=== PATIENT | male | born 1950 | race American Indian/Alaskan Native ===

== ENCOUNTER 2020-02-25 02:22 | Emergency (ER) | payer MEDICARE ==
--- NOTE | 2020-02-25 04:27 | XRay Report ---
CHEST 2 VIEWS INDICATION / CLINICAL INFORMATION: MAIN: SOB Pt says he woke up feeling SOB. Pt says "It may be my anxiety, I suffer from PTSD". COMPARISON: None available. FINDINGS: SUPPORT DEVICES: None. HEART / MEDIASTINUM: No significant abnormality. LUNGS / PLEURA: Both lungs are mildly hyperinflated suggesting COPD. There is blunting of the right c ostophrenic angle. It is unclear if this is a small pleural effusion or chronic pleural thickening. I would favor chronic pleural thickening. The lungs are otherwise clear. No suggestion of pneumonia or pulmonary edema. No pneumothorax. ADDITIONAL FINDINGS: No significant additional findings. IMPRESSION: 1. Hyperinflation consistent with COPD. No evidence of pneumonia. 2. Blunting of the right costophrenic angle. I suspect this is due to chronic pleural thickening but without prior radiographs, this is unknown. A small right pleural effusion cannot be excluded. Signer Name: Marta Delaney MD Signed: 02/25/2020 4:23 AM Workstation Name: [id number]
[2020-02-25 04:44] LABS: Basophils % (Auto) 0.7 % (0.0-1.8); Eosinophils % (Auto) 0.6 % (0.0-4.3); Hemoglobin 19.1 gm/dl (11.8-15.2); Lymphocytes # (Auto) 1.4 K/mm3 (1.2-5.4); Lymphocytes % (Auto) 20.9 % (13.4-35.0); Monocytes # (Auto) 0.7 K/mm3 (0.0-0.8); Monocytes % (Auto) 10.8 % (0.0-7.3)
[2020-02-25 04:51] LABS: Hematocrit 56.5 % (35.5-45.6); Mean Corpuscular HGB Conc 34 % (32-34); Mean Corpuscular Volume 90 fl (84-94); Platelet Count 259 K/mm3 (140-440); Red Blood Count 6.25 M/mm3 (3.65-5.03)
[2020-02-25 05:11] LABS: Albumin 5.1 g/dL (3.9-5); Calcium 10.9 mg/dL (8.4-10.2)
--- NOTE | 2020-02-25 05:48 | Emergency Department Report ---
ED Shortness of Breath HPI - General Chief Complaint: Anxiety Stated Complaint: CHEST PAIN, SHORTNESS OF BREATH Time Seen by Provider: 02/25/20 03:43 Source: patient Mode of arrival: Ambulatory Limitations: No Limitations - History of Present Illness Initial Comments: Patient is a 69-year-old male presents emergency room with complaints of shortness of breath that began around 2 AM this morning. He states that it woke him out of his sleep. He states that it felt difficult to breathe. Patient states that he has a history of PTSD and believes that he may have been having a panic attack per the patient. He denies any chest pain, palpitations, cough, fever, leg swelling. He has a past medical history of HTN, "irregular heartbeat", PE in 2011, CKD stage 4 per pt. He denies any allergies to medications. He is a former smoker and occasional drinker. He denies any SI or HI. - Related Data Allergies Allergy/AdvReac Type Severity Reaction Status Date / Time No Known Allergies Allergy Unverified 02/25/20 02:33 ED Review of Systems ROS: Stated complaint: CHEST PAIN, SHORTNESS OF BREATH Other details as noted in HPI Comment: All other systems reviewed and negative ED Past Medical Hx - Past Medical History Hx Hypertension: Yes Hx Psychiatric Treatment: Yes (Anxiety, PTSD) - Surgical History Past Surgical History?: No - Social History Smoking Status: Never Smoker Substance Use Type: None ED Physical Exam - General Limitations: No Limitations General appearance: alert, in no apparent distress - Head Head exam: Present: atraumatic, normocephalic - Eye Eye exam: Present: normal appearance - ENT ENT exam: Present: mucous membranes moist - Respiratory Respiratory exam: Present: normal lung sounds bilaterally. Absent: respiratory distress, wheezes, rales, rhonchi, stridor, chest wall tenderness, accessory muscle use, decreased breath sounds, prolonged expiratory - Cardiovascular Cardiovascular Exam: Present: normal rhythm, tachycardia, normal heart sounds. Absent: systolic murmur, diastolic murmur, rubs, gallop - Neurological Exam Neurological exam: Present: alert, oriented X3 - Psychiatric Psychiatric exam: Present: normal affect, normal mood - Skin Skin exam: Present: warm, dry, intact ED Course Vital Signs 02/25/20 02/25/20 02:28 06:21 Temperature 98.2 F 98.0 F Pulse Rate 115 H 88 Respiratory 18 18 Rate Blood Pressure 131/92 Blood Pressure 174/102 [Left] O2 Sat by Pulse 98 98 Oximetry ED Medical Decision Making - Lab Data Result diagrams: 02/25/20 04:02 02/25/20 04:02 Lab Results 02/25/20 02/25/20 02/25/20 Range/Units 04:02 04:02 04:02 WBC 6.5 (4.5-11.0) K/mm3 RBC 6.25 H (3.65-5.03) M/mm3 Hgb 19.1 H (11.8-15.2) gm/dl Hct 56.5 H (35.5-45.6) % MCV 90 (84-94) fl MCH 31 (28-32) pg MCHC 34 (32-34) % RDW 17.0 H (13.2-15.2) % Plt Count 259 (140-440) K/mm3 Lymph % (Auto) 20.9 (13.4-35.0) % [place] % (Auto) 10.8 H (0.0-7.3) % Eos % (Auto) 0.6 (0.0-4.3) % Baso % (Auto) 0.7 (0.0-1.8) % Lymph # 1.4 (1.2-5.4) K/mm3 [place] # 0.7 (0.0-0.8) K/mm3 Eos # 0.0 (0.0-0.4) K/mm3 Baso # 0.0 (0.0-0.1) K/mm3 Seg Neutrophils % 67.0 (40.0-70.0) % Seg Neutrophils # 4.3 (1.8-7.7) K/mm3 D-Dimer 402.34 H (0-234) ng/mlDDU Sodium 138 (137-145) mmol/L Potassium 4.3 (3.6-5.0) mmol/L Chloride 98.7 (98-107) mmol/L Carbon Dioxide 20 L (22-30) mmol/L Anion Gap 24 mmol/L BUN 23 H (9-20) mg/dL Creatinine 2.9 H (0.8-1.5) mg/dL Estimated GFR 26 ml/min BUN/Creatinine Ratio 8 % Glucose 105 H (75-100) mg/dL Calcium 10.9 H (8.4-10.2) mg/dL Total Bilirubin 0.50 (0.1-1.2) mg/dL AST 22 (5-40) units/L ALT 19 (7-56) units/L Alkaline Phosphatase 137 H (35-129) units/L Troponin T 0.018 (0.00-0.029) ng/mL NT-Pro-B Natriuret Pep 75.70 (0-900) pg/mL Total Protein 9.1 H (6.3-8.2) g/dL Albumin 5.1 H (3.9-5) g/dL Albumin/Globulin Ratio 1.3 % Vital Signs 02/25/20 02/25/20 02:28 06:21 Temperature 98.2 F 98.0 F Pulse Rate 115 H 88 Respiratory 18 18 Rate Blood Pressure 131/92 Blood Pressure 174/102 [Left] O2 Sat by Pulse 98 98 Oximetry - EKG Data EKG shows normal: sinus rhythm, axis, intervals, QRS complexes Rate: normal - EKG Data 02/25/20 05:47 biatrial enlargement posterior infarct, old non specific T wave inversion in inferior leads no old EKG for comparison - Radiology Data Radiology results: report reviewed CHEST 2 VIEWS INDICATION / CLINICAL INFORMATION: MAIN: SOB Pt says he woke up feeling SOB. Pt says "It may be my anxiety, I suffer from PTSD". COMPARISON: None available. FINDINGS: SUPPORT DEVICES: None. HEART / MEDIASTINUM: No significant abnormality. LUNGS / PLEURA: Both lungs are mildly hyperinflated suggesting COPD. There is blunting of the right costophrenic angle. It is unclear if this is a small pleural effusion or chronic pleural thickening. I would favor chronic pleural thickening. The lungs are otherwise clear. No suggestion of pneumonia or pulmonary edema. No pneumothorax. ADDITIONAL FINDINGS: No significant additional findings. IMPRESSION: 1. Hyperinflation consistent with COPD. No evidence of pneumonia. 2. Blunting of the right costophrenic angle. I suspect this is due to chronic pleural thickening but without prior radiographs, this is unknown. A small right pleural effusion cannot be excluded. Signer Name: Marta Delaney MD Signed: 02/25/2020 4:23 AM Workstation Name: [id number] Transcribed By: Dictated By: Marta Delaney MD Electronically Authenticated By: Marta Delaney MD Signed Date/Time: 02/25/203 DD/ 042 TD/TT: CT chest wo con INDICATION / CLINICAL INFORMATION: S.O.B., possible pleural effusion on CXR. TECHNIQUE: Axial CT imaging of the chest was obtained without contrast. Coronal and sagittal reformatted imaging obtained and reviewed. All CT scans at this location are performed using CT dose reduction for ALARA by means of automated exposure control. COMPARISON: Recent chest radiograph from earlier today FINDINGS: Chest CT without contrast does not demonstrate any mediastinal or hilar adenopathy. Heart size is normal. There is coronary artery calcification. Thoracic aorta is of normal caliber. There is some scarring in the right lung base with some mild pleural thickening. No pleural effusion is identified. The remainder of the lungs are clear. No evidence of pneumonia. Images of the upper abdomen show IVC filter in position. No acute finding within the upper abdomen. Moderate spondylitic changes are noted in the thoracic spine. IMPRESSION: 1. No acute finding within the chest. 2. There is mild parenchymal scarring and pleural thickening in the right lung base, accounting for findings on recent chest radiograph. Signer Name: Marta Delaney MD Signed: 02/25/2020 6:03 AM Workstation Name: [id number] Transcribed By: JR Dictated By: Marta Delaney MD Electronically Authenticated By: Marta Delaney MD Signed Date/Time: 02/25/20 0603 DD/ 0558 TD/TT: Nuclear medicine ventilation/perfusion lung scan Indication: Shortness of breath, history of right lung pulmonary embolism in 2010 TECHNICAL DATA: Inhaled administration followed by immediate static images of chest in multiple projections coordinated with breathing instructions. Followed by immediate static images of chest in multiple projections post I.V. injection. 15.6 millicuries of 133 Xenon is administered by inhalation. Pulmonary wash-in, equilibrium, and washout phases are performed. 4.5 millicuries of 99m Tc MAA is administered intravenously. FINDINGS: The ventilation scan is normal without evidence of delayed washout. The perfusion scan demonstrates homogeneous uptake without evidence of segmental or subsegmental defects. IMPRESSION: Normal lung scan. Signer Name: Marta Delaney MD Signed: 02/25/2020 6:55 AM Workstation Name: [id number] Transcribed By: Dictated By: Marta Delaney MD Electronically Authenticated By: Marta Delaney MD Signed Date/Time: 02/25/20654 DD/ 3 TD/TT: - Medical Decision Making Patient is a 69-year-old male presents emergency room with complaints of harvey rtness of breath that began around 2 AM this morning. He states that it woke him out of his sleep. He states that it felt difficult to breathe. Patient states that he has a history of PTSD and believes that he may have been having a panic attack per the patient. He denies any chest pain, palpitations, cough, fever, leg swelling. He has a past medical history of HTN, "irregular heartbeat", PE in 2010, CKD stage 4 per pt. He denies any allergies to medications. He is a former smoker and occasional drinker. He denies any SI or HI. Initial vitals with tachycardia which improved upon repeat. breath sounds are clear bilaterally to auscultation. EKG with biatrial enlargement, posterior infarct, old, non specific T wave inversion in inferior leads, no old EKG for comparison. Labs with elevated d-dimer, stable CKD, negative troponin. CXR: 1. Hyperinflation consistent with COPD. No evidence of pneumonia. 2. Blunting of the right costophrenic angle. I suspect this is due to chronic pleural thickening but without prior radiographs, this is unknown. A small right pleural effusion cannot be excluded. CT chest without contrast ordered to characterize XR findings due to no prior visits which shows 1. No acute finding within the chest. 2. There is mild parenchymal scarring and pleural thickening in the right lung base, accounting for findings on recent chest radiograph. VQ scan ordered due to elevated d-dimer with hx of CKD shows: Normal lung scan. On reexamination of patient he states that he does not have any symptoms at all currently and that he feels fine and is ready to go home. Discussed all results with patient. Advised patient Please follow-up with a sawdust drier. Please follow-up with your primary care doctor. Please follow-up with a psychiatrist. Return to the emergency room immediately for any new or worsening symptoms. - Differential Diagnosis Anxiety, PE, PTX, COPD, PNA, CHF, pleural effusion, pericarditis, anemia Critical care attestation.: If time is entered above; I have spent that time in minutes in the direct care of this critically ill patient, excluding procedure time. ED Disposition Clinical Impression: SOB (shortness of breath), Anxiety CKD (chronic kidney disease) Qualifiers: Chronic kidney disease stage: unspecified stage Qualified Code(s): N18.9 - Chronic kidney disease, unspecified Disposition: TO HOME OR SELFCARE Is pt being admited?: No Does the pt Need Aspirin: No Condition: Stable Instructions: Dyspnea (ED), Anxiety (ED) Additional Instructions: Please follow-up with a sawdust drier. Please follow-up with your primary care doctor. Please follow-up with a psychiatrist. Return to the emergency room immediately for any new or worsening symptoms. Referrals: PRIMARY CARE, [Primary Care Provider] - 2-3 Days RICHARD RICHARDSON MD [Staff Physician] - 2-3 Days [facility] [Outside] - 2-3 Days Time of Disposition: 07:03 Print Language: GHANAIAN
--- NOTE | 2020-02-25 06:07 | Cat Scan Report ---
CT chest wo con INDICATION / CLINICAL INFORMATION: S.O.B., possible pleural effusion on CXR. TECHNIQUE: Axial CT imaging of the chest was obtained without contrast. Coronal and sagittal reformatted imaging obtained and reviewed. All CT scans at this location are performed using CT dose reduction for ALAR A by means of automated exposure control. COMPARISON: Recent chest radiograph from earlier today FINDINGS: Chest CT without contrast does not demonstrate any mediastinal or hilar adenopathy. Heart size is nor mal. There is coronary artery calcification. Thoracic aorta is of normal caliber. There is some scarring in the right lung base with some mild pleural thickening. No pleural effusion is identified. The remainder of the lungs are clear. No evidence of pneumonia. Images of the upper abdomen show IVC filter in position. No acute finding within the upper abdomen. Moderate spondylitic changes are noted in the thoracic spine. IMPRESSION: 1. No acute finding within the chest. 2. There is mild parenchymal scarring and pleural thickening in the right lung base, accounting for f indings on recent chest radiograph. Signer Name: Marta Delaney MD Signed: 02/25/2020 6:03 AM Workstation Name: [id number]
[2020-02-25 06:22] VITALS: BP 174/102
--- NOTE | 2020-02-25 07:00 | Nuclear Medicine Report ---
Nuclear medicine ventilation/perfusion lung scan Indication: Shortness of breath, history of right lung pulmonary embolism in 2011 TECHNICAL DATA: Inhaled administration followed by immediate static images of chest in multiple projections coordinat ed with breathing instructions. Followed by immediate static images of chest in multiple projections post I.V. injection. 15.6 millicuries of 133 Xenon is administered by inhalation. Pulmonary wash-in, equilibrium, and washout phases are performed. 4.5 millicuries of 99m Tc MAA is administered intravenously. FINDINGS: The ventilation scan is normal without evidence of delayed washout. The perfusion scan demonstrates h omogeneous uptake without evidence of segmental or subsegmental defects. IMPRESSION: Normal lung scan. Signer Name: Marta Delaney MD Signed: 02/25/2020 6:55 AM Workstation Name: [id number]
== END 2020-02-25 07:18 | disposition home or self-care (01) ==
LOC: ED 02:22
DX: R06.02 Shortness of breath (principal); I12.9 Hypertensive chronic kidney disease with stage 1 through stage 4 chronic kidney disease, or unspecified chronic kidney disease; N18.9 Chronic kidney disease, unspecified; F41.9 Anxiety disorder, unspecified; F43.10 Post-traumatic stress disorder, unspecified
CPT/HCPCS: 36415; 71046; 71250; 78582; 80053; 83880; 84484; 85025; 85379; 93005; 99284; A9540; A9558